=== PATIENT | female | born 1945 | race Caucasian/White ===

== ENCOUNTER 2016-11-01 09:01 | Outpatient (RCR) | payer MEDICARE, BC | END 2016-11-24 15:49 | LOC: OPPGERO 09:01 | DX: F33.9 Major depressive disorder, recurrent, unspecified (principal); F41.9 Anxiety disorder, unspecified ==

== ENCOUNTER 2016-11-27 08:32 | Outpatient (RCR) | payer MEDICARE, BC | END 2016-12-25 14:59 | LOC: OPPGERO 08:32 | DX: F33.9 Major depressive disorder, recurrent, unspecified (principal); F41.9 Anxiety disorder, unspecified ==

== ENCOUNTER 2016-12-26 08:44 | Outpatient (RCR) | payer MEDICARE, BC | END 2017-01-25 14:30 | disposition home or self-care (01) | LOC: OPPGERO 08:44 | DX: F33.9 Major depressive disorder, recurrent, unspecified (principal); F41.9 Anxiety disorder, unspecified ==

== ENCOUNTER 2017-01-26 07:51 | Outpatient (RCR) | payer MEDICARE, BC | END 2017-02-23 15:13 | LOC: OPPGERO 07:51 | DX: F33.9 Major depressive disorder, recurrent, unspecified (principal); F41.9 Anxiety disorder, unspecified ==

== ENCOUNTER 2017-02-25 09:00 | Outpatient (RCR) | payer MEDICARE, BC | END 2017-03-27 16:15 | disposition still patient (30) | LOC: OPPGERO 09:00 | DX: F33.9 Major depressive disorder, recurrent, unspecified (principal); F41.9 Anxiety disorder, unspecified ==

== ENCOUNTER 2017-03-28 08:39 | Outpatient (RCR) | payer MEDICARE, BC | END 2017-04-26 12:53 | LOC: OPPGERO 08:39 | DX: F33.9 Major depressive disorder, recurrent, unspecified (principal) ==

== ENCOUNTER 2017-04-27 09:00 | Outpatient (RCR) | payer MEDICARE, BC | END 2017-05-25 15:39 | LOC: OPPGERO 09:00 | DX: F33.9 Major depressive disorder, recurrent, unspecified (principal) ==